=== PATIENT | female | born 1945 | race Caucasian/White ===

== ENCOUNTER 2023-04-10 19:21 | Emergency (ER) | payer MEDICARE, OTHER ==
[~2023-04-10] VITALS: Ht 165.1 cm; Wt 58.2 kg
[2023-04-10] MEDS ORDERED: dexamethasone sod phosphate 10mg/ml inj PO STA (21:06)
[2023-04-10] MEDS ORDERED: acetaminophen 325mg tablet PO ONE (21:10)
[2023-04-10] MEDS ORDERED: BUDE180A INH (21:59)
[2023-04-10] MEDS ORDERED: AMOX-117 PO (21:59)
[2023-04-10] MEDS ORDERED: DEXA6TAB PO (21:59)
[2023-04-10] MEDS ORDERED: ALBU6.7H14 INH (21:59)
[2023-04-10 22:11] VITALS: BP 116/82; PULSE 103; RESP 18; TEMP 100.4; O2SAT 98
--- NOTE | 2023-04-10 23:05 | NUR ---
I have reviewed and agree with all interventions, assessments performed and documented by Claudia BURRIS.
== END 2023-04-10 22:15 | disposition home or self-care (01) ==
LOC: ER 19:23
DX: U07.1 COVID-19 (principal); F41.9 Anxiety disorder, unspecified
CPT/HCPCS: 71045; 99283; J1100

== ENCOUNTER 2023-06-03 13:15 | Emergency (ER) | payer MEDICARE, OTHER ==
[~2023-06-03] VITALS: Ht 162.6 cm; Wt 60.0 kg
[~2023-06-03 13:15] MED LIST: ALBU6.7H14 INH; BUDE180A INH; DEXA6TAB PO
[2023-06-03 13:17] VITALS: TEMP 98.1
[2023-06-03] MEDS ORDERED: methylPREDNISolone sod succ 125mg/2ml vial IV ONE (13:40)
[2023-06-03] MEDS ORDERED: famotidine/PF 10 mg/ml inj IV ONE (13:40)
[2023-06-03] MEDS ORDERED: DIPH25CA83 PO (14:23)
[2023-06-03] MEDS ORDERED: FAMO-129 PO (14:23)
[2023-06-03] MEDS ORDERED: PRED20TA PO (14:23)
[2023-06-03 16:41] VITALS: BP 147/84; PULSE 86; RESP 18; O2SAT 96
== END 2023-06-03 16:39 | disposition home or self-care (01) ==
LOC: ER 13:16
DX: L29.9 Pruritus, unspecified (principal); T50.995A Adverse effect of other drugs, medicaments and biological substances, initial encounter; Z79.899 Other long term (current) drug therapy; Z87.891 Personal history of nicotine dependence; Y92.89 Other specified places as the place of occurrence of the external cause
CPT/HCPCS: 93005; 96374; 96375; 99285; J2930; J3490